=== PATIENT | male | born 1990 | race Hispanic/Latino ===

== ENCOUNTER 2019-06-26 22:11 | Emergency (ER) | payer OTHER ==
[2019-06-26] MEDS ORDERED: CEPHALEXIN 500 MG CAPSULE ONE (23:17)
[2019-06-26] MEDS ORDERED: TETANUS/DIPHTHERIA TOXOID [ADULT] 0.5 ML VIAL IM ONE (23:17)
== END 2019-06-26 23:57 ==
LOC: EDH 22:11
DX: S51.832A Puncture wound without foreign body of left forearm, initial encounter (principal); X99.8XXA Assault by other sharp object, initial encounter; Y93.89 Activity, other specified; Y92.89 Other specified places as the place of occurrence of the external cause; Y99.8 Other external cause status
CPT/HCPCS: 73070; 90471; 90714

== ENCOUNTER 2025-10-23 02:41 | Emergency (ER) | payer BC ==
[~2025-10-23] VITALS: Ht 170.2 cm; Wt 89.4 kg
--- NOTE | 2025-10-23 03:05 | ERN ---
General Chief Complaint: Nausea,Vomiting,Diarrhea Stated Complaint: N X V X 6 MONTHS Time Seen by MD: 02:45 History of Present Illness Initial Comments 35-year-old male no past medical history here for evaluation of cough, nausea, vomiting. States that the symptoms have been ongoing for six months however worsened over the past two days. Patient is concerned with the vomiting today thus he decided to come to the emergency room Allergies: Coded Allergies: No Known Drug Allergies (Unverified Allergy, Unknown, 06/27/19) Past Medical History Past Medical History: Anxiety, Depression Past Surgical History: None Respiratory: (+) cough Gastrointestinal/Abdominal: (+) nausea, (+) vomiting Review of Systems: was completed, & the rest were negative. Physical Exam Physical Exam Dictation GENERAL APPEARANCE NAD, activity normal for age, well developed/ well nourished, no cyanosis, pallor, or diaphoresis. EYES lids/conjunctiva normal. EARS/NOSE/THROAT Mucous membranes moist, nares normal, poor dentition. O/P clear. Tonsils normal. No erythema or exudate HEAD/NECK normocephalic atraumatic, no facial trauma, neck is supple. RESPIRATORY respiratory effort normal, speaks in full sentences, no tripod position, no accessory muscle use. Lungs clear to auscultation without rhonchi, wheezes, rales. Dry cough noted CARDIAC Regular rate and rhythm, no edema. ABDOMINAL Soft, ND/NT. No evidence of fluid wave. No pulsatile masses on exam, rebound tenderness, Pichardo sign or pain over Mcburney's point. MUSCLES/EXTREMITIES No abnormal range of motion, no swelling. SKIN Warm, pink and dry. No rashes, dermatoses, petechiae or lesions. NEUROLOGICAL Speech is clear and appropriate. Normal level of consciousness. Gait and coordination are normal. 5/5 strength in all extremities. PSYCH Normal mood and affect. Judgement/competence is appropriate Results Laboratory and Microbiology Lab and Micro Result Laboratory Tests Test 10/23/25 03:08 10/23/25 03:17 White Blood Count 16.5 K/uL (4.8-10.8) H Red Blood Count 5.37 MIL/uL (4.50-6.20) Hemoglobin 15.1 g/dL (14.0-18.0) Hematocrit 45.5 % (42-54) Mean Corpuscular Volume 84.7 fL (79-99) Mean Corpuscular Hemoglobin 28.1 pg (27.0-33.0) Mean Corpuscular Hemoglobin Concent 33.2 g/dL (32.0-36.0) Red Cell Distribution Width 14.6 % (11.0-15.5) Platelet Count 321 K/uL (130-400) Mean Platelet Volume 11.1 fL (7.5-10.5) H Immature Granulocyte % (Auto) 0.4 % (0-1) Neutrophils (%) (Auto) 82.4 % (40.0-77.0) H Lymphocytes (%) (Auto) 10.1 % (21.0-51.0) L Monocytes (%) (Auto) 6.5 % (3.0-13.0) Eosinophils (%) (Auto) 0.1 % (0.0-8.0) Basophils (%) (Auto) 0.5 % (0.0-5.0) Neutrophils # (Auto) 13.6 K/uL (1.8-7.7) H Lymphocytes # (Auto) 1.7 K/uL (1.0-4.8) Monocytes # (Auto) 1.1 K/uL (0.1-1.0) H Eosinophils # (Auto) 0.01 K/uL (0.00-0.70) Basophils # (Auto) 0.08 K/uL (0.00-0.20) Absolute Immature Granulocyte (auto 0.06 K/uL (0-1) Nucleated Red Blood Cells 0.0 % (0.0-0.19) Sodium Level 138 mmol/L (136-145) Potassium Level 3.6 mmol/L (3.5-5.1) Chloride Level 98 mmol/L (101-111) L Carbon Dioxide Level 28 mmol/L (21-32) Blood Urea Nitrogen 10 mg/dL (7-18) Creatinine 1.0 mg/dL (0.5-1.3) Glomerular Filtration Rate Calc 101 mL/min (>90) Random Glucose 109 mg/dL (70-105) H Total Calcium 11.5 mg/dL (8.5-10.1) H Serum Alcohol < 3 mg/dL (0-10) Influenza Type A Antigen Negative For Type A Influenza Type B Antigen Negative For Type B SARS-CoV-2 Antigen (Rapid) PRESUMPTIVE NEGATIVE MDM 35-year-old male here for evaluation of nausea and vomiting. We will administer likely secondary to posttussive emesis. We will get basic blood work, give fluids and reassess. Likely dispo home ED Course Orders Procedure Category Date Status Time Cbc With Differential LAB 10/23/25 Complete 02:45 Basic Metabolic Panel LAB 10/23/25 Complete 02:45 0.9%Nacl 1000ml (Ns PHA 10/23/25 In Process 1000ml) 03:00 Ondansetron 4mg Inj PHA 10/23/25 Complete (Zofran 4mg Inj) 03:00 Influenza Type A & B, LAB 10/23/25 Complete Rapid 03:00 Covid19 (Sars Antigen LAB 10/23/25 Complete Rapid) 03:00 Alcohol, Blood LAB 10/23/25 Complete 03:51 Acetaminophen 500mg PHA 10/23/25 Complete Tab (Tylenol 500mg T 04:30 Ibuprofen 800 Mg Tab PHA 10/23/25 Complete (Motrin) 04:30 Mag/Alum/Simeth 30ml PHA 10/23/25 Complete (Maalox Plus 30ml) 04:30 Guaifenesin-Codeine PHA 10/23/25 Complete Syrup 5ml (Robitussi 04:30 Current Medications Medications (Trade) Dose Ordered Sig/Dom Route PRN Reason Start Time Stop Time Status Last Admin Dose Admin Acetaminophen (TYLenol 500MG TAB) 1,000 mg ONCE ONCE PO 10/23/25 04:30 10/23/25 04:31 DC 10/23/25 04:23 Al Hydroxide/Mg Hydroxide (MAALox PLUS 30ML) 30 ml ONCE ONCE PO 10/23/25 04:30 10/23/25 04:31 DC 10/23/25 04:23 Guaifenesin/ Codeine Phosphate (RobiTUSSin AC 5 ML SYRUP) 10 ml ONCE ONCE PO 10/23/25 04:30 10/23/25 04:31 DC 10/23/25 04:24 Ibuprofen (moTRIN) 800 mg ONCE ONCE PO 10/23/25 04:30 10/23/25 04:31 DC 10/23/25 04:23 Ondansetron HCl (zoFRAN 4MG INJ) 4 mg ONCE ONCE IVP 10/23/25 03:00 10/23/25 03:01 DC 10/23/25 03:13 Sodium Chloride 1,000 ml @ 0 mls/hr Q0M IV 10/23/25 03:00 11/22/25 02:59 10/23/25 03:13 Vital Signs Date Time Temp Pulse Resp B/P (MAP) Pulse Ox O2 Delivery O2 Flow Rate FiO2 10/23/25 03:19 98.8 82 18 132/66 99 Room Air* 0 21 10/23/25 02:48 97.5 107 20 146/98 97 Room Air DX & DISP Disposition: Discharge Departure Impression: Primary Impression: Viral URI with cough Additional Impression: GERD (gastroesophageal reflux disease) Condition: Stable Scripts Prednisone (Prednisone) 10 Mg Tab.ds.pk 1 TAB PO DAILY for 5 Days, #21 TAB 0 Refills Prov: JORGE CORTES MD 10/23/25 Azithromycin (Azithromycin) 500 Mg Tablet 1 TAB PO DAILY for 5 Days, #5 TAB 0 Refills Prov: JORGE CORTES MD 10/23/25 Oxymetazoline HCl (Oxymetazoline HCl) 0.05 % [place] 2 SPRAY NS BID for 30 Days, #15 ML 0 Refills Prov: JORGE CORTES MD 10/23/25 Benzonatate (Tessalon Perles) 100 Mg Cap 1 CAP PO TID for cough for 10 Days, #30 CAP 0 Refills Prov: JORGE CORTES MD 10/23/25 Omeprazole (Omeprazole) 10 Mg Capsule.dr 1 CAP PO DAILY for 30 Days, #30 CAP 0 Refills Prov: JORGE CORTES MD 10/23/25 Guaifenesin (Mucinex) 1,200 Mg Tbmp.12hr 1 TAB PO BID for cough for 7 Days, #14 TAB 0 Refills Prov: JORGE CORTES MD 10/23/25 Referrals: SELF,REFERRAL (PCP) JORGE CORTES MD Oct 23, 2025 03:05
[2025-10-23] MEDS: 0.9%NACL 1000ML 1,000 ML IV SCH (03:13)
[2025-10-23 03:15] LABS: IMMATURE GRANULOCYTE ABSOLUTE 0.06 K/uL (0-1); NUCLEATED RED BLOOD CELLS 0.0 % (0.0-0.19); PLATELET COUNT (AUTO) 321 K/uL (130-400); RED BLOOD CELL COUNT(AUTO) 5.37 MIL/uL (4.50-6.20); RED CELL DISTRIBUTION WIDTH 14.6 % (11.0-15.5); WHITE BLOOD COUNT (AUTO) 16.5 K/uL (4.8-10.8)
[2025-10-23 03:19] VITALS: BP 132/66; PULSE 82; RESP 18; TEMP 98.8; O2SAT 99
[2025-10-23 03:26] LABS: CREATININE 1.0 mg/dL (0.5-1.3); GLOMERULAR FILTR. RATE CALC 101.0 mL/min (>90); GLUCOSE,RANDOM 109.0 mg/dL (70-105); SODIUM SERUM 138.0 mmol/L (136-145); UREA NITROGEN, BLOOD 10.0 mg/dL (7-18)
[2025-10-23 03:43] LABS: COVID19 (SARS ANTIGEN RAPID) PRESUMPTIVE NEGATIVE (NEGATIVE)
[2025-10-23 03:48] LABS: INFLUENZA TYPE A Negative For Type A (NEGATIVE); INFLUENZA TYPE B Negative For Type B (NEGATIVE)
[2025-10-23] MEDS: MAG/ALUM/SIMETH 30 ML UDCUP PO ONE (04:23)
== END 2025-10-23 04:50 | disposition home or self-care (01) ==
LOC: EDH 02:41
DX: J06.9 Acute upper respiratory infection, unspecified (principal); K21.9 Gastro-esophageal reflux disease without esophagitis; F41.9 Anxiety disorder, unspecified; F32.A Depression, unspecified; Z20.822 Contact with and (suspected) exposure to COVID-19
CPT/HCPCS: 99284; 96374; 87426; 80048; 85025; 87804 ×2; 36415; J2405